=== PATIENT | female | born 2000 | race Caucasian/White ===

== ENCOUNTER 2022-05-27 22:29 | Emergency (ER) | payer BC, SELFPAY ==
[2022-05-27 22:31] VITALS: BP 126/93; PULSE 94; RESP 16; TEMP 36.5; O2SAT 100
--- NOTE | 2022-05-27 23:16 | ED_ITS ---
HPI - Head Injury General Chief complaint: Head Injury Stated complaint: hit head on a shelf and has a bump Time Seen by Provider: 05/27/22 22:53 Source: patient Mode of arrival: ambulatory Limitations: no limitations History of Present Illness HPI Narrative: 21-year-old female presents today with complaints of pain to the front of her forehead after hitting it on a shelf today at 130. Patient denies LOC. Patient does endorse headache but denies nausea, vomiting, vision changes. Patient states after she hit her head she saw stars but is currently without any vision issues. Patient ambulatory upon arrival. Gait steady. Related Data Allergies Allergy/AdvReac Type Severity Reaction Status Date / Time No Known Allergies Allergy Verified 05/27/22 22:34 Review of Systems Review of Systems: CONSTITUTIONAL: Denies fever, chills, or sweats. EYES: Denies visual changes, redness, or discharge. ENT: Denies rhinorrhea, congestion, sore throat, or otalgia. CARDIOVASCULAR: Denies chest pain, palpitations, or edema. RESPIRATORY: Denies cough or dyspnea. SKIN: Denies rash or itching. MUSCULOSKELETAL: Denies back pain, joint pain, or myalgia. NEUROLOGIC: Headache. Denies numbness, dizziness, or weakness. Exam Narrative: GENERAL: Well-appearing, well-nourished, and in no acute distress. HEAD: Normocephalic, right to central forehead near hairline. Approximately 2 cm in diameter. No significant swelling noted. EYES: PERRLA and EOMI. ENT: Nares clear, no rhinorrhea or epistaxis. Mucous membranes moist. Oropharynx without tonsillar hypertrophy exudate or other lesions. Bilateral TMs pearly coffman nonbulging NECK: Supple. No adenopathy or masses. No carotid bruits or JVD CHEST: Clear to auscultation. No respiratory distress. No wheezes rales or rh onchi HEART: Regular rate and rhythm. No murmur heard. Normal peripheral pulses. EXTREMITIES: Normal range of motion. No edema. SKIN: Warm, dry, no rash. NEURO: No focal deficits. Alert and oriented x3. PSYCH: Normal mood and affect. Course Vital Signs Vital signs: Vital Signs Temperature 97.7 F 05/27/22 22:31 Pulse Rate 94 05/27/22 22:31 Respiratory Rate 16 05/27/22 22:31 Blood Pressure 126/93 H 05/27/22 22:31 Pulse Oximetry 100 05/27/22 22:31 Oxygen Delivery Room Air 05/27/22 22:31 Temperature 97.7 F 05/27/22 22:31 Pulse Rate 94 05/27/22 22:31 Respiratory Rate 16 05/27/22 22:31 Blood Pressure 126/93 H 05/27/22 22:31 Pulse Oximetry 100 05/27/22 22:31 Oxygen Delivery Room Air 05/27/22 22:31 MDM - Head Injury Differential Diagnosis Differential diagnosis: Likely concussion without loss of consciousness, closed head injury and postconcussion syndrome Discharge Plan Discharge Clinical Impression: Closed head injury Patient Disposition: Home, Self-Care Condition: Stable Instructions: Antibiotic Form, Concussion (ED), Head Injury (ED) Additional Instructions: Tylenol or ibuprofen as needed for pain. Make sure to stay hydrated. Return with any new or worsening in symptoms including altered mental status, increasing pain or any other concerns. Follow-up/Referrals: UNKNOWN,DOCTOR [Primary Care Provider] - 1 Week Time of Disposition: 23:21
[2022-05-28 00:02] VITALS: BP 118/70; PULSE 80; RESP 16; TEMP 36.8; O2SAT 100
== END 2022-05-28 00:03 | disposition home or self-care (01) ==
PROVIDERS: Emergency Provider Nurse Practitioner Family
DX: S09.90XA Unspecified injury of head, initial encounter (principal); W22.8XXA Striking against or struck by other objects, initial encounter
CPT/HCPCS: 99283

== ENCOUNTER 2023-12-31 18:07 | Emergency (ER) | payer BC, SELFPAY ==
--- NOTE | ~2023-12-31 | CT_ITS ---
EXAMINATION: CT abdomen pelvis w con DATE: 12/31/2023 20:34 INDICATION: Right lower quadrant abdominal tenderness. Nausea, vomiting, diarrhea. TECHNIQUE: Computed tomography (CT) of the abdomen and pelvis was performed with 100 mL Omnipaque 350 intravenous contrast. Automated exposure control and iterative reconstruction technique were employe d. The dose-length product was 365.77 mGy-cm. COMPARISON: None. FINDINGS: The visualized portions of the lung bases demonstrate mild atelectasis. There is a 4 mm nod ule in left lower lobe, likely benign. No pleural effusion. The heart size is normal. No pericardial effusion. The liver, gallbladder, spleen, pancreas, adrenal glands, and kidneys are normal. There is a ruptured 2.9 cm corpus luteum cyst in right ovary. There is a small volume of pelvic ascites. There are no dilated loops of bowel. The appendix is not visualized. There are no pathologically enlarged lymph nodes. The bones are unremarkable. IMPRESSION: 1. Ruptured 2.9 cm corpus luteum cyst in right ovary with small volume of ascites. Reviewed, dictated and finalized at location E. IMPRESSION: 1. Ruptured 2.9 cm corpus luteum cyst in right ovary with small volume of ascit es.
[2023-12-31 18:43] VITALS: BP 139/76; PULSE 78; RESP 16; O2SAT 100
[2023-12-31 19:19] LABS: Appearance Urine Clear (Clear); Bilirubin Urine Negative (Negative); Blood Urine Negative (Negative); Color Urine Yellow (Yellow); Glucose Urine UA Negative (Negative); Ketones Urine Negative (Negative); Leukocyte Esterase Ur Negative LEU/UL (Negative); Nitrate Urine Negative (Negative); Protein Urine Negative (Negative); Specific Grav Ur 1.007 (1.001-1.035); Urobilinogen Urine 0.2 mg/dL (<2.0); pH Urine 6.5 (5.0-9.0)
[2023-12-31 19:21] LABS: Add Urine Microscopic? NO
--- NOTE | 2023-12-31 19:53 | ED.ABDPAIN ---
HPI - Abdominal Pain General Chief Complaint: Abdominal Pain Stated Complaint: abd pain Time Seen by Provider: 12/31/23 19:04 Source: patient Mode of arrival: ambulatory Limitations: no limitations History of Present Illness HPI narrative: This is a 23-year-old female who presents to the ED for chief complaint of abdominal pain this started yesterday. Patient states that she has had numerous episodes of diarrhea and 3 episodes of vomiting over the past couple of days. Reports that she started to have the right lower abdominal pain after urinating yesterday. States that the pain has been intermittent but is always in the right lower quadrant. denies fevers, chills, GI bleeding symptoms, urinary symptoms, chest pain, cough, flank pain, back pain. Related Data Allergies Allergy/AdvReac Type Severity Reaction Status Date / Time No Known Allergies Allergy Verified 12/31/23 18:10 Review of Systems Review of Systems: All systems as dictated in HPI Exam Narrative: GENERAL: Well-appearing, well-nourished, and in no acute distress. HEAD: Normocephalic, atraumatic. EYES: PERRLA and EOMI. ENT: Nares clear, no rhinorrhea or epistaxis. Mucous membranes moist. Oropharynx without tonsillar hypertrophy exudate or other lesions. NECK: Supple. No adenopathy or masses. CHEST: No respiratory distress. Clear to auscultation. No wheezes rales or rhonchi HEART: Regular rate and rhythm. No murmur heard. Normal peripheral pulses. ABDOMEN: RLQ and LLQ tenderness present. .Soft, otherwise nontender, nondistended, normal active bowel sounds. MSK: Normal range of motion. No edema. SKIN: Warm, dry, no rash. NEURO: Alert and oriented x4. No focal deficits. PSYCH: Normal mood and affect. Course Vital Signs Vital signs: Vital Signs Pulse Rate 78 12/31/23 18:43 Respiratory Rate 16 12/31/23 18:43 Blood Pressure 139/76 12/31/23 18:43 Pulse Oximetry 100 12/31/23 18:43 Pulse Rate 68 12/31/23 21:10 Respiratory Rate 15 12/31/23 21:10 Blood Pressure 135/69 12/31/23 21:10 Pulse Oximetry 98 12/31/23 21:10 MDM - Abdominal Pain MDM Narrative Medical decision making narrative: this is a 23-year-old female who presents to the ED with chief complaint of abdominal pain beginning yesterday. Vitals are normal. Exam does show some lower abdominal tenderness. Lab work shows normal white count on CBC. CMP grossly unremarkable. UA is also unremarkable. CT abdomen pelvis with IV contrast: IMPRESSION: 1. Ruptured 2.9 cm corpus luteum cyst in right ovary with small volume of ascites.. Symptoms and presentation consistent with ruptured ovarian cyst. 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 Pt will be discharged in stable condition. Return precautions given and supportive measures discussed. Pt is understanding and agreeable with plan for discharge and follow-up with PCP/sales and in home delivery specialist. Lab Data 12/31/23 20:13 12/31/23 20:26 Labs: Lab Results 12/31/23 12/31/23 12/31/23 Range/Units 19:11 20:13 20:26 WBC 9.0 (4.5-10.0) K/mm3 RBC 4.43 (4.2-5.4) M/mm3 Hgb 13.9 (12.0-15.0) g/dL Hct 42.3 (37.0-47.0) % MCV 95.5 (80-100) fl MCH 31.4 (26-34) pg MCHC 32.9 (32-36) g/dl RDW 12.7 (11.5-14.5) % Plt Count 352 (150-375) k/mm3 MPV 8.6 (7.4-10.4) fl Immature Gran % (Auto) 0.7 H (0-0.5) % Neut % (Auto) 64.6 (45.5-73.1) % Lymph % (Auto) 26.4 (18.3-44.2) % [place] % (Auto) 5.7 (2.6-8.5) % Eos % (Auto) 2.2 (0-4.4) % Baso % (Auto) 0.4 (0.2-1.2) % Lymph # (Auto) 2.36 (0.9-3.2) K/mm3 [place] # (Auto) 0.5 (0.1-0.6) K/mm3 Eos # (Auto) 0.2 (0-0.3) K/mm3 Baso # (Auto) 0.0 (0.0-0.1) K/mm3 Abs Immat Gran (auto) 0.06 H (0.00-0.031) K/mm3 Absolute Neuts (auto) 5.8 (1.3-6.7) K/mm3 Absolute Nucleated RBC 0.000 (0.0-0.012) K/mm3 Nucleated RBC % 0.0 (0.0-0.2) % Sodium 13
[2023-12-31 20:22] LABS: Basophils Percent Auto 0.4 % (0.2-1.2); Eosinophils Absolute Auto 0.2 K/mm3 (0-0.3); Eosinophils Percent Auto 2.2 % (0-4.4); Hematocrit 42.3 % (37.0-47.0); Hemoglobin 13.9 g/dL (12.0-15.0); Immature Granulocyte Absolute 0.06 K/mm3 (0.00-0.031); Immature Granulocyte Percent A 0.7 % (0-0.5); Lymphocytes Absolute Auto 2.36 K/mm3 (0.9-3.2); Lymphocytes Percent Auto 26.4 % (18.3-44.2); Mean Corpuscular HGB Conc 32.9 g/dl (32-36); Mean Corpuscular Hemoglobin 31.4 pg (26-34); Mean Corpuscular Volume 95.5 fl (80-100); Mean Platelet Volume 8.6 fl (7.4-10.4); Monocytes Absolute Auto 0.5 K/mm3 (0.1-0.6); Monocytes Percent Auto 5.7 % (2.6-8.5); Neutrophils Absolute Auto 5.8 K/mm3 (1.3-6.7); Neutrophils Percent Auto 64.6 % (45.5-73.1); Platelet Count Result 352 k/mm3 (150-375); Red Blood Count 4.43 M/mm3 (4.2-5.4); Red Cell Distribution Width 12.7 % (11.5-14.5)
[2023-12-31 20:29] LABS: Estimated CRCL calculation 90 ml/min; Estimated Glomerular Filt Rate > 60
[2023-12-31 20:33] LABS: Alanine Aminotransferase 13 U/L (6-35); Albumin Level 4.8 g/dL (3.5-5.1); Alkaline Phosphatase 72 U/L (38-126); Anion Gap 9 mmol/L (4-12); Aspartate Amino Transferase 21 U/L (14-36); Bilirubin,Total 0.5 mg/dL (0.2-1.3); Blood Urea Nitrogen 12 mg/dL (7-17); Calcium 9.1 mg/dL (8.4-10.2); Carbon Dioxide 26 mmol/L (22-30); Chloride 103 mmol/L (98-107); Estimated CRCL calculation 90 ml/min; Estimated Glomerular Filt Rate > 60; Glucose 90 mg/dL (65-110); Lipase 45 U/L (23-300); Potassium 4.2 mmol/L (3.4-5.0); Sodium 138 mmol/L (137-145)
[2023-12-31] MEDS: ONDANSETRON INJ 4 MG/2 ML VIAL IV PUSH (20:34)
[2023-12-31] MEDS: MORPHINE SULFATE (*CRX) 4 MG/ML INJ IV PUSH (20:36)
[2023-12-31 21:10] VITALS: BP 135/69; PULSE 68; RESP 15; O2SAT 98
== END 2023-12-31 21:11 | disposition home or self-care (01) ==
PROVIDERS: Student in an Organized Health Care Education/Training Program; Emergency Provider Physician Assistant; PCP Physician Assistant
DX: N83.11 Corpus luteum cyst of right ovary (principal)
CPT/HCPCS: 36415; 74177; 80053; 81003; 81025; 83690; 85025; 96374; 96375; 99284; J2270; J2405; Q9967

== ENCOUNTER 2024-02-05 11:22 | Outpatient (CLI) | payer BC, SELFPAY ==
--- NOTE | ~2024-02-05 | US_ITS ---
US transvaginal Ordering provider: Jennifer Jiménez, JILL History: . Pelvic pain . Comparison: None. Technique: endovaginal ultrasound of the pelvis (Doppler ultrasound interrogation techniques used as needed for this exam.) FINDINGS: CERVIX: Normal. UTERUS: Measures 7.4x 2.4x 4 cm in length which is within normal limits and is anteverted. No myomet rial masses. ENDOMETRIUM: Normal in thickness measuring 6.6 mm. No endometrial masses, cysts or fluid. CUL DE SAC: No free fluid. RIGHT OVARY: Normal in size measuring 1.2x 2.8x 1.3 cm. Normal echotexture. Doppler vascular flow pre sent. LEFT OVARY: Normal in size measuring 2.4x 3.1x 2.3 cm. Normal echotexture. Doppler vascular flow pres ent. ADNEXA: Normal. No mass. IMPRESSION: normal pelvic ultrasound. Reviewed, dictated and finalized at location A. IMPRESSION: normal pelvic ultrasound.
== END 2024-02-05 11:23 ==
LOC: MICIMG 11:23
PROVIDERS: PCP Physician Assistant; Visit Provider Nurse Practitioner Women's Health
DX: R10.31 Right lower quadrant pain (principal); N83.201 Unspecified ovarian cyst, right side
CPT/HCPCS: 76830